=== PATIENT | male | born 1995 | race African-American/Black ===

== ENCOUNTER 2017-04-08 17:13 | Emergency (ER) | payer OTHER ==
[2017-04-08 18:05] VITALS: BP 145/90
== END 2017-04-08 18:05 | disposition home or self-care (01) ==
LOC: ED 17:13
DX: Z76.0 Encounter for issue of repeat prescription (principal); Z86.59 Personal history of other mental and behavioral disorders

== ENCOUNTER 2017-09-21 17:03 | Emergency (ER) | payer OTHER ==
[~2017-09-21] VITALS: Ht 188 cm; Wt 106.6 kg
[2017-09-21 17:15] VITALS: Ht 188 cm; Wt 106.6 kg
[2017-09-21 20:21] VITALS: BP 163/89
== END 2017-09-21 20:21 | disposition home or self-care (01) ==
LOC: ED 17:03
DX: Z76.0 Encounter for issue of repeat prescription (principal); J45.909 Unspecified asthma, uncomplicated; Z88.0 Allergy status to penicillin